=== PATIENT | male | born 1995 | race Caucasian/White ===

== ENCOUNTER 2023-07-26 09:24 | Emergency (ER) | payer SELFPAY ==
[~2023-07-26] VITALS: Ht 175.3 cm; Wt 117.0 kg
[2023-07-26 09:37] VITALS: BP 146/72; PULSE 83; RESP 20; TEMP 98.1; O2SAT 100
== END 2023-07-26 12:49 | disposition left against medical advice (07) ==
LOC: ER 09:24
DX: M25.562 Pain in left knee (principal); Z53.21 Procedure and treatment not carried out due to patient leaving prior to being seen by health care provider
CPT/HCPCS: 99281